=== PATIENT | female | born 1995 | race Hispanic/Latino ===

== ENCOUNTER 2024-06-11 10:29 | Emergency (ER) | payer OTHER ==
[~2024-06-11] VITALS: Ht 160 cm; Wt 72.6 kg
[2024-06-11 10:33] VITALS: PULSE 90; RESP 18; TEMP 98.3; O2SAT 97
[2024-06-11] MEDS: ACETAMINOPHEN 325 MG TAB PO ONE (12:24)
== END 2024-06-11 12:47 | disposition home or self-care (01) ==
LOC: FSED 10:32
DX: S02.2XXA Fracture of nasal bones, initial encounter for closed fracture (principal); V43.62XA Car passenger injured in collision with other type car in traffic accident, initial encounter; Y92.488 Other paved roadways as the place of occurrence of the external cause; F17.210 Nicotine dependence, cigarettes, uncomplicated
CPT/HCPCS: 70450; 70486; 71046; 72125; 99283

== ENCOUNTER 2025-07-02 00:29 | Emergency (ER) | payer OTHER ==
[~2025-07-02] VITALS: Ht 160 cm; Wt 77.6 kg
[~2025-07-02 00:29] MED LIST: IBUPROFEN600 MG PO; TYLENOL325 MG PO
[2025-07-02] MEDS ORDERED: IOPAMIDOL 370 MG/ML 100 ML INFUS..BTL INJ ONE (01:07)
[2025-07-02] MEDS ORDERED: MAGNESIUM/ALUMINUM/SIMETHICONE 30 ML UDC ONE (01:15)
[2025-07-02] MEDS ORDERED: LIDOCAINE VISC 2% SOLN 15 ML UDC ONE (01:15)
[2025-07-02] MEDS ORDERED: BELLADONNA ALK/PHENOBARBITAL 5 ML UDC ONE (01:15)
[2025-07-02] MEDS ORDERED: FAMOTIDINE 20 MG/2 ML VIAL IV ONE (01:17)
[2025-07-02] MEDS: FAMOTIDINE 20 MG/2 ML VIAL IV SCH (01:18)
[2025-07-02] MEDS: ONDANSETRON HCL INJ 2MG/ML 2ML 2 MG/ML VIAL IV STA (01:18)
[2025-07-02] MEDS: SODIUM CHLORIDE 0.9% 1000ML 1,000 ML IV ONE (01:18)
[2025-07-02] MEDS: DONNATAL/LIDOCAINE/MAALOX 30 ML SUSP PO ONE (01:19)
[2025-07-02] MEDS ORDERED: OMEPRAZOLE40 MG PO (04:14)
[2025-07-02 04:20] VITALS: PULSE 60; RESP 15; TEMP 98.2
[2025-07-02 04:22] VITALS: BP 128/75; PULSE 60; RESP 15; TEMP 98.2; O2SAT 100
== END 2025-07-02 04:28 | disposition home or self-care (01) ==
LOC: FSED 00:37
DX: R10.11 Right upper quadrant pain (principal); K29.70 Gastritis, unspecified, without bleeding; K27.9 Peptic ulcer, site unspecified, unspecified as acute or chronic, without hemorrhage or perforation
CPT/HCPCS: 74177; 80048; 80076; 81003; 81025; 85025; 96374; 96375; 99284; J1308; J2405; J7030; Q9967